=== PATIENT | female | born 1985 | race Caucasian/White ===

== ENCOUNTER 2018-05-21 16:19 | Outpatient (CLI) | payer BC ==
--- NOTE | 2018-05-21 17:15 | Non Stress Test Report ---
Non Stress Test Datetime Report Generated by CPN: 05/21/2018 17:15 DEMOGRAPHIC EGA NST: 40.0 INDICATION Indication for Study: Ordered by Provider MONITORING Monitor Explained: Monitor Explained; Test Explained; Patient Verbalized Understanding Time on Monitor: 05/21/2018 16:35 Time off Monitor: 05/21/2018 17:00 NST Duration: 25 NST INTERVENTIONS NST Interventions: PO Hydration; Reposition Patient Physician Notified NST: Hussain Leblanc CNM BABY A: [id number] Movement : Present Contraction Frequency : none FHR Baseline : 125 Accelerations : 15X15 Accelerations : 15X15 Decelerations : None Variability : Moderate 6-25bpm Variability : Moderate 6-25bpm NST Review: Meets Criteria for Reactive NST NST Review and Verified By : Madelyn Morocho RN NST Results: Reactive NST REPORT Report Trigger: Send Report
== END 2018-05-21 17:13 | disposition home or self-care (01) ==
LOC: LC 16:19
PROVIDERS: ATTEND Student in an Organized Health Care Education/Training Program
PROC: 4A1HXCZ Monitoring of Products of Conception, Cardiac Rate, External Approach (ICD-10-PCS; principal; 2018-05-21)
DX: O99.283 Endocrine, nutritional and metabolic diseases complicating pregnancy, third trimester (principal); E03.9 Hypothyroidism, unspecified; O48.0 Post-term pregnancy; Z3A.40 40 weeks gestation of pregnancy
CPT/HCPCS: 59025

== ENCOUNTER 2018-05-23 03:32 | Inpatient (IN) | payer BC ==
[2018-05-23] MEDS ORDERED: RINGERS SOLUTION,LACTATED 1,000 ML IV PRN (03:52)
--- NOTE | 2018-05-23 04:04 | Admission Physical ---
Datetime Report Generated by CPN: 05/23/2018 04:04 CURRENT ADMISSION Chief Complaint: Uterine Contractions Indication for Induction: Not Applicable Admit Impression : Term, Intrauterine Admit Plan: Admit to Unit; Initiate Labor Protocol ALLERGIES Medication Allergies: No Medication Allergies: No Known Allergies (05/21/2018) Latex: No Latex Allergies OBSTETRICAL HISTORY EDC: 05/21/2018 00:00 : 4 Para: 2 Term: 2 : 0 SAB: 1 IAB: 0 Ectopic: 0 Livin Cesareans: 0 VBACs: 0 Multiple Births: 0 Gestational Diabetes: No Rh Sensitization: No Incompetent Cervix: No JOSEMANUEL: No Infertility: No ART Treatment: No Uterine Anomaly: No IUGR: No Hx Previous C/S: No Macrosomia: No Hx Loss/Stillborn: No PIH: Yes Hx : No Placenta Previa/Abruption: No Depression/PP Depression: No PTL/PROM: No Post Hemorrhage: No Current Procedures: Ultrasound; NST Obstetrical History Comments: 2011- IOL for elevated b/p current- no complications SEE RECORDS Alcohol: No Marijuana : No Cocaine: No Other Illicit Drugs: No Cigarettes: Current Everyday Smoker. 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 [id number] INFECTIOUS HISTORY Gonorrhea: No Genital Herpes: No Chlamydia: No Tuberculosis: No Syphilis: No Hepatitis: No HIV/AIDS Exposure: No Rash or Viral Illness: No HPV: No PHYSICAL EXAM General: Normal HEENT: Normal Neurologic: Normal Thyroid: Normal Heart: Normal Lungs: Normal Breast: Deferred Back: Normal Abdomen: Normal Genitourinary Exam: Normal Extremities: Normal DTRs: Normal Pelvic Type: Adequate FETUS A EGA: 40.2 PLANS FOR LABOR AND DELIVERY Labor and Delivery: None Pain Management: Natural; Spinal Feeding Preference: Breast Benefit of Breast Feed Discussed: Yes Circumcision: N/A INFORMED CONSENT Signature: with User ID: [email or web address]
[2018-05-23] MEDS ORDERED: RINGERS SOLUTION,LACTATED 1,000 ML IV ONE (04:05)
[2018-05-23] MEDS ORDERED: PROMETHAZINE HCL INJ 25 MG/1 ML VIAL IV PRN (04:56)
[2018-05-23] MEDS ORDERED: MAGNESIUM HYDROXIDE SUSP 30 ML UDCUP PO PRN (04:56)
[2018-05-23] MEDS ORDERED: DIPHENHYDRAMINE HCL 25 MG CAPSULE PO PRN (04:56)
[2018-05-23] MEDS ORDERED: PROMETHAZINE HCL 25 MG TABLET PO PRN (04:56)
[2018-05-23] MEDS ORDERED: MEASLES,MUMPS&RUBELLA VACC/PF 0.5 ML VIAL SUBCUT PRN (04:56)
[2018-05-23] MEDS ORDERED: PSEUDOEPHEDRINE HCL 30 MG TABLET PO PRN (04:56)
[2018-05-23] MEDS ORDERED: ZOLPIDEM TARTRATE 5 MG TABLET PO PRN (04:56)
[2018-05-23] MEDS ORDERED: DIPH/PERTUSS(ACELL)/TETANUS VAC/PF 0.5 ML SYR (>=10YO) IM PRN (04:56)
[2018-05-23] MEDS ORDERED: GLYCERIN/WITCH HAZEL LEAF 1 EACH MED..PAD TP PRN (04:56)
[2018-05-23] MEDS ORDERED: OXYTOCIN/NORMAL SALINE 20 UNIT/1,000 ML RTUINJ IV PRN (04:56)
[2018-05-23] MEDS ORDERED: NA PHOS,M-B/NA PHOS,DI-BA (ADULT) 133 ML ENEMA PR PRN (04:56)
[2018-05-23] MEDS ORDERED: DIBUCAINE 1% OINTMENT 28 GM TP PRN (04:56)
[2018-05-23] MEDS ORDERED: ACETAMINOPHEN 650 MG SUPP.RECT PR PRN (04:56)
[2018-05-23] MEDS ORDERED: BENZOCAINE/MENTHOL AEROSOL SPRAY 56 ML TOP PRN (04:56)
[2018-05-23] MEDS ORDERED: PROMETHAZINE HCL 25 MG SUPP.RECT PR PRN (04:56)
--- NOTE | 2018-05-23 04:59 | PDOC DELIVERY SUMMARY ---
Delivery Summary - Maternal Ruptured Membranes: AROM Fluids: Clear - Delivery Presentation: Vertex Uterine Contraction Monitoring: External Support Person Present: Yes Nuchal Cord: Yes - x1 - Medications Type of Anesthesia:: Other
[2018-05-23] MEDS ORDERED: ACETAMINOPHEN WITH CODEINE #3 TABLET ONE (05:07)
[2018-05-23] MEDS ORDERED: IBUPROFEN 800 MG TABLET ONE (05:07)
[2018-05-23] MEDS: IBUPROFEN 800 MG TABLET PO SCH ×3 (05:10→21:50)
[2018-05-23] MEDS: ACETAMINOPHEN WITH CODEINE #3 TABLET PO PRN ×2 (05:10→15:02)
--- NOTE | 2018-05-23 05:18 | Warning Signs in Babies ---
VOD Warning Signs Datetime Report Generated by [facility]: 05/23/2018 05:18 VOD#[id number] -Warning Signs in Babies: Viewed with Parent(s)/Family (05/23/2018 05:15:Kristen Chavira RN)
[2018-05-23 05:41] LABS: HEMATOCRIT 35.8 % (36.0-47.0); HEMOGLOBIN 12.4 g/dL (12.0-15.5); MEAN CORPUSCULAR HEMOGLOBIN 30.2 pg (27.0-33.4); MEAN CORPUSCULAR HGB CONC 34.5 g/dL (32.0-36.0); MEAN CORPUSCULAR VOLUME 88 fl (80-97); PLATELET COUNT 146 10^3/uL (150-450); RED BLOOD COUNT 4.09 10^6/uL (3.72-5.28); RED CELL DISTRIBUTION WIDTH 13.3 % (11.5-14.0); WHITE BLOOD COUNT 14.4 10^3/uL (4.0-10.5)
[2018-05-23 05:55] LABS: ABSOLUTE LYMPHOCYTES# (MANUAL) 1.2 10^3/uL (0.5-4.7); ABSOLUTE MONOCYTES # (MANUAL) 0.7 10^3/uL (0.1-1.4); ABSOLUTE NEUTROPHILS# (MANUAL) 12.5 10^3/uL (1.7-8.2); BAND NEUTROPHILS % (MANUAL) 1 % (3-5); BASOPHILS % (MANUAL) 0 % (0-2); EOSINOPHILS % (MANUAL) 0 % (0-6); LYMPHOCYTES % (MANUAL) 8 % (13-45); MONOCYTES % (MANUAL) 5 % (3-13); PLATELET COMMENT DECREASED; RBC MORPHOLOGY COMMENT NORMO-CYTIC/CHROMIC; SEGMENTED NEUTROPHILS % (MAN) 86 % (42-78); TOTAL CELLS COUNTED 100
[2018-05-23] MEDS ORDERED: BENZOCAINE/MENTHOL AEROSOL SPRAY 56 ML ONE (06:03)
--- NOTE | 2018-05-23 06:30 | Delivery Summary ---
Del Sum A-C Datetime Report Generated by CPN: 05/23/2018 06:29 DELIVERY PERSONNEL DELIVERY PERSONNEL: [id number] Delivery Doctor:: Lanre Haynes MD Labor and Delivery Nurse:: Kristen Chavira RNinformation management manager Nurse:: Bertha Sinha RN Meat Grinder/QUALITY ASSURANCE SUPERVISOR CHASSIS: Clara Silva, RESISTOR WINDER Additional Personnel: : Yumi Brown RN MATERNAL INFORMATION Delivery Anesthesia: None Medications After Delivery: Pitocin Drip 20 Units/1000ml NSS Maternal Complications: Precipitous Labor (<3hrs) LABOR SUMMARY EDC: 05/21/2018 00:00 No. Babies in Womb: 1 Attempted: No Labor Anesthesia: None LABOR INFORMATION Reason for Induction: Not Applicable Onset of Labor: 05/23/2018 03:37 Complete Dilatation: 05/23/2018 04:27 Oxytocin: N/A Group B Beta Strep: negative Steroids Given: None Reason Steroids Not Administered: Not Applicable MEMBRANES Membranes Rupture Method: Artificial Rupture of Membranes: 05/23/2018 04:04 Length of Rupture (hr): 0.73 Amniotic Fluid Color: Clear Amniotic Fluid Amount: Moderate Amniotic Fluid Odor: Normal STAGES OF LABOR Stage 1 hr: 0 Stage 1 min: 50 Stage 2 hr: 0 Stage 2 min: 21 Stage 3 hr: 0 Stage 3 min: 3 Total Time in Labor hr: 1 Total Time in Labor min: 14 VAGINAL DELIVERY Episiotomy: None Laceration #1: Vaginal Laceration Extension #1: N/A Laceration Repair: Not Applicable Sponge Count Correct: N/A Sharps Count Correct: N/A CSECTION DELIVERY Primary Indication: N/A Secondary Indication: N/A CSection Incidence: N/A Labor: N/A Elective: N/A CSection Incision: N/A BABY A INFORMATION Delivery Date/Time: 05/23/2018 04:48 Method of Delivery: Vaginal Born in Route : No : N/A Forceps: N/A Vacuum Extraction: N/A Shoulder Dystocia : No PRESENTATION/POSITION BABY A Presentation: Cephalic Cephalic Presentation: Vertex Vertex Position: Right Occipital Anterior Breech Presentation: N/A PLACENTA INFORMATION BABY A Placenta Delivery Time : 05/23/2018 04:51 Placenta Method of Delivery: Spontaneous Placenta Status: Delivered SCORES BABY A Heart Rate 1 min: >100 bpm Resp Effort 1 min: Good Cry Reflex Irritability 1 min: Cough or Sneeze or Pulls Away Muscle Tone 1 min: Active Motion Color 1 min: Blue/Pale Resuscitation Effort 1 min: Tactile Stimulation SCORE 1 MIN: 8 Heart Rate 5 min: >100 bpm Resp Effort 5 min: Good Cry Reflex Irritability 5 min: Cough or Sneeze or Pulls Away Muscle Tone 5 min: Active Motion Color 5 min: Body [place], Extremities Blue SCORE 5 MIN: 9 INFORMATION BABY A Gestational Age at Delivery: 40.2 Gestational Status: Full Term- 39- 40.6 Weeks Outcome : Liveborn Infant Condition : Stable Infant Sex: Female IDENTIFICATION BABY A Verification Date/Time: 05/23/2018 04:52 ID Band Number: [id number] Mother's Name Verified: Yes RN Verifying : Rukhsana Sinha RN Additional Verifying Personnel: NMino Montanez RN WEIGHT/LENGTH BABY A Birthweight (gm): 3210 Infant Weight (lb): 7 Weight (oz): 1 Infant Length (in): 19.00 Infant Length (cm): 48.26 CORD INFORMATION BABY A No. Cord Vessels: 3 Nuchal Cord : Around Neck x1, Loose Cord Blood Taken: Yes-For Storage (Mom's Blood type +) Infant Suction: Mouth; Nose ASSESSMENT BABY A Infant Complications: None Physical Findings at Delivery: Within Normal Limits Infant Respirations: Appears Normal Skin to Skin: Yes Rv Repair Technician/ALS Called : No Care By: Madelyn Brown RN Transferred To: Remains with Mother BABY B INFORMATION : N/A SIGNATURES Signature: with User ID: [email or web address]
[2018-05-23] MEDS: PRENATAL VITAMIN W DHA CAPSULE PO SCH (10:05)
[2018-05-23] MEDS: DOCUSATE SODIUM 100 MG CAPSULE PO SCH ×2 (10:05→17:27)
[2018-05-23] MEDS: SENNOSIDES/DOCUSATE 8.6-50 MG 1 EACH TABLET PO SCH (10:05)
[2018-05-23] MEDS: FAMOTIDINE 20 MG TABLET PO SCH ×2 (10:05→21:52)
[2018-05-23] MEDS: FERROUS SULFATE 325 MG TABLET PO SCH ×2 (10:05→17:27)
[2018-05-23 15:28] LABS: APPEARANCE,URINE CLEAR; BILIRUBIN,URINE NEGATIVE (NEGATIVE); COLOR,URINE STRAW; GLUCOSE, URINE NEGATIVE (NEGATIVE); KETONES,URINE NEGATIVE (NEGATIVE); LEUKOCYTE ESTERASE,URINE SMALL (NEGATIVE); NITRITE,URINE NEGATIVE (NEGATIVE); PROTEIN,URINE NEGATIVE (NEGATIVE); URINE SPECIFIC GRAVITY 1.001; UROBILINOGEN,URINE NEGATIVE mg/dL (<2.0)
[2018-05-23 15:58] LABS: URINE AMPHETAMINES SCREEN NEGATIVE; URINE BARBITURATES SCREEN NEGATIVE; URINE BENZODIAZEPINES SCREEN NEGATIVE; URINE COCAINE SCREEN NEGATIVE; URINE MARIJUANA (THC) SCREEN NEGATIVE; URINE METHADONE SCREEN NEGATIVE; URINE PHENCYCLIDINE SCREEN NEGATIVE
[2018-05-24] MEDS: IBUPROFEN 800 MG TABLET PO SCH ×2 (06:34→14:13)
[2018-05-24 07:01] LABS: HEMATOCRIT 33.9 % (36.0-47.0); HEMOGLOBIN 11.8 g/dL (12.0-15.5); MEAN CORPUSCULAR HEMOGLOBIN 30.5 pg (27.0-33.4); MEAN CORPUSCULAR HGB CONC 34.7 g/dL (32.0-36.0); MEAN CORPUSCULAR VOLUME 88 fl (80-97); PLATELET COUNT 148 10^3/uL (150-450); RED BLOOD COUNT 3.85 10^6/uL (3.72-5.28); RED CELL DISTRIBUTION WIDTH 13.4 % (11.5-14.0); WHITE BLOOD COUNT 10.8 10^3/uL (4.0-10.5)
[2018-05-24] MEDS: ACETAMINOPHEN WITH CODEINE #3 TABLET PO PRN (07:54)
[2018-05-24 09:48] VITALS: BP 130/71
--- NOTE | 2018-05-24 10:05 | PDOC DISCHARGE SUMMARY ---
Final Diagnosis Discharge Date: 05/24/18 - Final Diagnosis (1) Vaginal delivery Is this a current diagnosis for this admission?: Yes Discharge Data - Discharge Medication Home Medications: Levothyroxine Sodium [Synthroid] 100 mcg PO DAILY 05/21/18 No122/Iron/Folic Acid [ Multi Tablet] 1 tab PO DAILY 05/21/18 Reason(s) for Admission: Onset of Labor Procedures: NST Intrapartum Procedure(s): Spontaneous Vaginal Delivery Complication(s): Laceration-Vaginal Laceration-Degree: 1st - Diagnosis Test Laboratory: Temp Pulse Resp BP Pulse Ox 97.9 F 53 L 16 130/71 H 95 05/24/18 09:47 05/24/18 09:47 05/24/18 09:47 05/24/18 09:47 05/24/18 09:47 05/23/18 05/23/18 05/24/18 05:20 15:10 06:53 RBC 4.09 3.85 Hgb 12.4 11.8 L Hct 35.8 L 33.9 L Urine Opiates Screen UNCONFIRMED POSITIVE - Discharge information/Instructions Discharge Activity: Balance Activity w/Rest, Pelvic Rest Discharge Diet: Regular Disposition: HOME, SELF-CARE Follow up with: [facility] in: 3, Weeks
[2018-05-24] MEDS: FAMOTIDINE 20 MG TABLET PO SCH (10:22)
[2018-05-24] MEDS: SENNOSIDES/DOCUSATE 8.6-50 MG 1 EACH TABLET PO SCH (10:22)
[2018-05-24] MEDS: PRENATAL VITAMIN W DHA CAPSULE PO SCH (10:22)
[2018-05-24] MEDS: FERROUS SULFATE 325 MG TABLET PO SCH ×2 (10:22→17:06)
[2018-05-24] MEDS: DOCUSATE SODIUM 100 MG CAPSULE PO SCH ×2 (10:23→17:06)
--- NOTE | 2018-05-24 10:42 | PDOC PROGRESS REPORT ---
Subjective-OB Progress Note for:: 05/24/18 Subjective: Pt doing well. She reports light bleeding, reg diet and is voiding without difficulty. Physical Exam (OB) Vital Signs: Temp Pulse Resp BP Pulse Ox 97.9 F 53 L 16 130/71 H 95 05/24/18 09:47 05/24/18 09:47 05/24/18 09:47 05/24/18 09:47 05/24/18 09:47 Intake & Output 05/23/18 05/24/18 05/25/18 06:59 06:59 06:59 Weight 99.2 kg - Lochia Lochia Amount: Small 10-25 ml Lochia Color: Rubra/Red - Abdomen Description: Soft, Round Hernia Present: No Fundal Description: Firm, Midline Fundal Height: u/u - u/2 Objective-Diagnostic Laboratory: 05/24/18 06:53 05/23/18 05/24/18 15:10 06:53 WBC 10.8 H RBC 3.85 Hgb 11.8 L Hct 33.9 L MCV 88 MCH 30.5 MCHC 34.7 RDW 13.4 Plt Count 148 L Urine Color STRAW Urine Appearance CLEAR Urine pH 6.0 Ur Specific [place] 1.001 Urine Protein NEGATIVE Urine Glucose (UA) NEGATIVE Urine Ketones NEGATIVE Urine Blood LARGE H Urine Nitrite NEGATIVE Ur Leukocyte Esterase SMALL H Urine WBC (Auto) 2 Urine RBC (Auto) 3 Assessment and Plan(PN) - Assessment and Plan (1) Vaginal delivery Is this a current diagnosis for this admission?: Yes - Time Spent with Patient Time with patient: Less than 15 minutes Medications reviewed and adjusted accordingly: Yes - Disposition Anticipated Discharge: Home Within: within 24 hours
== END 2018-05-24 18:55 | disposition home or self-care (01) | DRG 807 ==
LOC: LC 03:32 → LR 03:48 → 2S 06:45
PROVIDERS: ADMIT Obstetrics & Gynecology Gynecology; ATTEND Obstetrics & Gynecology Gynecology
PROC: 10E0XZZ Delivery of Products of Conception, External Approach (ICD-10-PCS; principal; 2018-05-23)
PROC: 10907ZC Drainage of Amniotic Fluid, Therapeutic from Products of Conception, Via Natural or Artificial Opening (ICD-10-PCS; 2018-05-23)
PROC: 4A1HXCZ Monitoring of Products of Conception, Cardiac Rate, External Approach (ICD-10-PCS; 2018-05-23)
DX: O69.81X0 Labor and delivery complicated by cord around neck, without compression, not applicable or unspecified (principal); O99.334 Smoking (tobacco) complicating childbirth; F17.210 Nicotine dependence, cigarettes, uncomplicated; O99.284 Endocrine, nutritional and metabolic diseases complicating childbirth; E03.9 Hypothyroidism, unspecified; O62.3 Precipitate labor; Z3A.40 40 weeks gestation of pregnancy; Z37.0 Single live birth
CPT/HCPCS: 36415; 80307; 81001; 85025; 85027; 86592; 86850; 86900; 86901; 90471; 90686; G0008; J2590; J3490